=== PATIENT | female | born 1955 | race Caucasian/White ===

== ENCOUNTER → 2023-06-20 11:49 | Outpatient (BNVA) | payer MEDICARE, SELFPAY | PROVIDERS: PCP Internal Medicine; Visit Provider Psychiatry & Neurology Neurology | DX: G62.9 Polyneuropathy, unspecified (principal); R29.90 Unspecified symptoms and signs involving the nervous system; M62.81 Muscle weakness (generalized); M79.604 Pain in right leg; M79.605 Pain in left leg; R20.2 Paresthesia of skin | CPT/HCPCS: 99203 ==

== ENCOUNTER → 2023-07-26 14:04 | Outpatient (BNVA) | payer MEDICARE, SELFPAY | PROVIDERS: PCP Internal Medicine; Visit Provider Psychiatry & Neurology Neurology | DX: G62.89 Other specified polyneuropathies (principal) | CPT/HCPCS: 95885; 95908 ==

== ENCOUNTER → 2023-11-03 10:42 | Outpatient (BNVA) | payer MEDICARE, SELFPAY | PROVIDERS: PCP Internal Medicine; Visit Provider Psychiatry & Neurology Neurology | DX: G62.9 Polyneuropathy, unspecified (principal); G61.81 Chronic inflammatory demyelinating polyneuritis; R29.90 Unspecified symptoms and signs involving the nervous system; M62.81 Muscle weakness (generalized); R20.2 Paresthesia of skin | CPT/HCPCS: 99212 ==

== ENCOUNTER → 2024-02-14 13:37 | Outpatient (BNVA) | payer MEDICARE, SELFPAY | PROVIDERS: PCP Internal Medicine; Visit Provider Psychiatry & Neurology Neurology | DX: G62.9 Polyneuropathy, unspecified (principal); G61.81 Chronic inflammatory demyelinating polyneuritis; R29.90 Unspecified symptoms and signs involving the nervous system; M62.81 Muscle weakness (generalized); M79.604 Pain in right leg; M79.605 Pain in left leg; R20.2 Paresthesia of skin | CPT/HCPCS: 99212; 99213 ==